=== PATIENT | female | born 1950 | race Caucasian/White ===

== ENCOUNTER → 2020-11-17 14:32 | Outpatient (CLI) | payer MEDICARE, SELFPAY ==
--- NOTE | 2020-11-17 | DI.US.S_ITS ---
PROCEDURE: US SOFT TISSUE HEAD AND NECK INDICATIONS: SWELLING TECHNIQUE: Real-time scanning was performed of the neck region of interest, with image documentation. COMPARISON: None. FINDINGS: The palpable abnormality is a 0.8 x 1.1 x 0.7 cm lymph node. There is increased vascularity within the lymph node. IMPRESSION: The palpable abnormality is a borderline enlarged lymph node. This finding is nonspecific and may be secondary to infectious, inflammatory or neoplastic etiology. Recommend clinical correlation and follow up. If clinically indicated, neck CT may be obtained for further evaluation. Dictated by: Christofer Flores M.D. on 11/17/2020 at 15:23 Approved by: Christofer Flores M.D. on 11/17/2020 at 15:24
== END ==
PROVIDERS: PCP Physician Assistant Medical; Referring Provider Physician Assistant Medical; Visit Provider Physician Assistant Medical
DX: R59.0 Localized enlarged lymph nodes (principal)
CPT/HCPCS: 76536